=== PATIENT | female | born 1930 | race Caucasian/White ===

== ENCOUNTER 2017-01-11 03:46 | Emergency (ER) | payer MEDICARE, OTHER ==
[2017-01-11 04:05] LABS: BASO % 0.4 % (0.1-1.2); EOS # 0.1 10_X3_uL (0.0-0.4); EOS % 1.4 % (0.7-5.8); GRAN # 6.2 10_X3_uL (1.6-6.1); GRAN % 65.1 % (34.0-71.1); HEMATOCRIT 43.8 % (34-45); HEMOGLOBIN 14.3 g/dL (11.2-15.7); LYMPH # 2.3 10_X3_uL (1.2-3.7); LYMPH % 24.4 % (19.3-51.7); MEAN CORPUSCULAR HEMOGLOBIN 30.2 pg (27.0-33.0); MEAN CORPUSCULAR HGB CONC 32.6 g/dL (32.0-36.0); MEAN CORPUSCULAR VOLUME 92.4 fL (79-95); MONO # 0.8 10_X3_uL (0.2-0.9); MONO % 8.7 % (4.7-12.5); PLATELET COUNT 209 x10_3/uL (182-369); RED BLOOD COUNT 4.74 x10_6/uL (3.9-5.2); RED CELL DISTRIBUTION WIDTH 14.4 % (11.7-14.4); WHITE BLOOD COUNT 9.5 x10_3/uL (4.0-10.0)
[2017-01-11 04:21] LABS: ALBUMIN 4.1 gm/dL (3.4-5.0); ALKALINE PHOSPHATASE 76 U/L (50-136); ALT/SGPT 19 U/L (3.5-33.9); AMYLASE 79 U/L (15.62-74.58); AST/SGOT 21 U/L (7.04-26.96); BILIRUBIN,TOTAL 0.31 mg/dL (0.0-1.0); BLOOD UREA NITROGEN 23 mg/dL (7-18); CALCIUM 9.5 mg/dL (8.7-10.7); CARBON DIOXIDE 24 mmol/L (21-32); CREATINE KINASE 46 U/L (21-215); CREATININE 0.8 mg/dL (0.6-1.3); GLUCOSE,RANDOM 140 mg/dL (70-99); LIPASE 77 U/L (6.75-60.75); POTASSIUM 3.7 mmol/L (3.5-5.1); SODIUM 140 mmol/L (136-145); TOTAL PROTEIN 7.1 gm/dL (6.4-8.2)
[2017-01-11 05:05] LABS: URINE BILIRUBIN NEGATIVE (NEGATIVE); URINE BLOOD NEGATIVE (NEGATIVE); URINE GLUCOSE (UA) NORMAL (NORMAL); URINE KETONE NEGATIVE (NEGATIVE); URINE LEUKOCYTE ESTERASE TRACE (NEGATIVE); URINE NITRATE NEGATIVE (NEGATIVE); URINE PROTEIN TRACE (NEGATIVE); URINE RBC 0-5 /[HPF] (0-2); URINE WBC 0-5 /[HPF] (0-5); UROBILINOGEN NORMAL mg/dL (<1.0)
== END 2017-01-11 06:07 | disposition home or self-care (01) ==
LOC: ER 03:46
PROVIDERS: Emergency Medicine
DX: R11.2 Nausea with vomiting, unspecified (principal); I10 Essential (primary) hypertension; E03.9 Hypothyroidism, unspecified; Z88.0 Allergy status to penicillin
CPT/HCPCS: 36415; 80053; 81001; 82150; 82550; 82553; 83690; 85025; 93005; 96374; 96376; 99070; 99284; 99284-25; J7050; J8597

== ENCOUNTER 2017-02-11 13:30 | Emergency (ER) | payer MEDICARE, OTHER ==
[2017-02-11 13:53] LABS: BASO # 0.1 10_X3_uL (0.0-0.1); BASO % 0.8 % (0.1-1.2); EOS # 0.1 10_X3_uL (0.0-0.4); EOS % 1.3 % (0.7-5.8); GRAN % 65.8 % (34.0-71.1); HEMATOCRIT 43.7 % (34-45); HEMOGLOBIN 14.1 g/dL (11.2-15.7); LYMPH # 1.4 10_X3_uL (1.2-3.7); LYMPH % 22.6 % (19.3-51.7); MEAN CORPUSCULAR HEMOGLOBIN 30.6 pg (27.0-33.0); MEAN CORPUSCULAR HGB CONC 32.3 g/dL (32.0-36.0); MEAN CORPUSCULAR VOLUME 94.8 fL (79-95); MEAN PLATELET VOLUME 10.8 fl (7.5-11.5); MONO # 0.6 10_X3_uL (0.2-0.9); MONO % 9.5 % (4.7-12.5); PLATELET COUNT 235 x10_3/uL (182-369); RED BLOOD COUNT 4.61 x10_6/uL (3.9-5.2); RED CELL DISTRIBUTION WIDTH 14.8 % (11.7-14.4); WHITE BLOOD COUNT 6.1 x10_3/uL (4.0-10.0)
[2017-02-11 14:06] LABS: CALCIUM 9.5 mg/dL (8.7-10.7); POTASSIUM 3.6 mmol/L (3.5-5.1)
[2017-02-11 14:42] LABS: URINE BILIRUBIN NEGATIVE (NEGATIVE); URINE BLOOD TRACE (NEGATIVE); URINE GLUCOSE (UA) NORMAL (NORMAL); URINE KETONE NEGATIVE (NEGATIVE); URINE LEUKOCYTE ESTERASE 2+ (NEGATIVE); URINE NITRATE NEGATIVE (NEGATIVE); URINE PROTEIN TRACE (NEGATIVE)
[2017-02-11 14:54] LABS: URINE BACTERIA TRACE (NONE SEEN); URINE CALCIUM OXALATE CRYSTALS TNTC /[HPF] (NONE SEEN); URINE HYALINE CAST 0-2 /[HPF] (0-1/hpf); URINE MUCUS 1+; URINE RBC 0-5 /[HPF] (0-2); URINE SQUAMOUS EPITHELIAL CELL 0-10 /[HPF] (NONE SEEN); URINE WBC 0-5 /[HPF] (0-5)
== END 2017-02-11 15:22 | disposition home or self-care (01) ==
LOC: ER 13:30
PROVIDERS: General Practice
DX: R41.0 Disorientation, unspecified (principal); S90.31XA Contusion of right foot, initial encounter; F03.90 Unspecified dementia, unspecified severity, without behavioral disturbance, psychotic disturbance, mood disturbance, and anxiety; Z88.0 Allergy status to penicillin; Z79.899 Other long term (current) drug therapy
CPT/HCPCS: 36415; 73630; 80048; 81001; 85025; 99283; 99284

== ENCOUNTER 2017-02-12 22:06 | Inpatient (IN) | payer MEDICARE, OTHER ==
[~2017-02-12] VITALS: Ht 167.6 cm; Wt 54.0 kg
[2017-02-13 00:36] LABS: BASO % 0.2 % (0.1-1.2); EOS % 0.2 % (0.7-5.8); GRAN # 10.4 10_X3_uL (1.6-6.1); GRAN % 86.6 % (34.0-71.1); HEMATOCRIT 40.1 % (34-45); LYMPH # 0.8 10_X3_uL (1.2-3.7); LYMPH % 6.4 % (19.3-51.7); MEAN CORPUSCULAR HEMOGLOBIN 30.1 pg (27.0-33.0); MEAN CORPUSCULAR HGB CONC 32.4 g/dL (32.0-36.0); MEAN CORPUSCULAR VOLUME 92.8 fL (79-95); MEAN PLATELET VOLUME 10.8 fl (7.5-11.5); MONO # 0.8 10_X3_uL (0.2-0.9); MONO % 6.6 % (4.7-12.5); PLATELET COUNT 220 x10_3/uL (182-369); RED BLOOD COUNT 4.32 x10_6/uL (3.9-5.2); RED CELL DISTRIBUTION WIDTH 14.4 % (11.7-14.4)
[2017-02-13 00:53] LABS: ALBUMIN 3.8 gm/dL (3.4-5.0); ALKALINE PHOSPHATASE 75 U/L (50-136); ALT/SGPT 18 U/L (3.5-33.9); AST/SGOT 18 U/L (7.04-26.96); BILIRUBIN,TOTAL 0.47 mg/dL (0.0-1.0); BLOOD UREA NITROGEN 23 mg/dL (7-18); CALCIUM 9.2 mg/dL (8.7-10.7); CARBON DIOXIDE 28 mmol/L (21-32); CREATININE 0.7 mg/dL (0.6-1.3); GLUCOSE,RANDOM 136 mg/dL (70-99); POTASSIUM 3.7 mmol/L (3.5-5.1); SODIUM 140 mmol/L (136-145); TOTAL PROTEIN 6.7 gm/dL (6.4-8.2)
[2017-02-13 07:06] LABS: BASO % 0.2 % (0.1-1.2); EOS % 0.2 % (0.7-5.8); GRAN # 8.4 10_X3_uL (1.6-6.1); GRAN % 86.5 % (34.0-71.1); HEMATOCRIT 38.5 % (34-45); HEMOGLOBIN 12.4 g/dL (11.2-15.7); LYMPH # 0.8 10_X3_uL (1.2-3.7); LYMPH % 7.7 % (19.3-51.7); MEAN CORPUSCULAR HEMOGLOBIN 30.2 pg (27.0-33.0); MEAN CORPUSCULAR HGB CONC 32.2 g/dL (32.0-36.0); MEAN CORPUSCULAR VOLUME 93.7 fL (79-95); MEAN PLATELET VOLUME 11.6 fl (7.5-11.5); MONO # 0.5 10_X3_uL (0.2-0.9); MONO % 5.4 % (4.7-12.5); PLATELET COUNT 201 x10_3/uL (182-369); RED BLOOD COUNT 4.11 x10_6/uL (3.9-5.2); RED CELL DISTRIBUTION WIDTH 14.4 % (11.7-14.4); WHITE BLOOD COUNT 9.7 x10_3/uL (4.0-10.0)
[2017-02-13 07:13] LABS: BLOOD UREA NITROGEN 22 mg/dL (7-18); CALCIUM 8.9 mg/dL (8.7-10.7); CARBON DIOXIDE 30 mmol/L (21-32); CREATININE 0.7 mg/dL (0.6-1.3); GLUCOSE,RANDOM 118 mg/dL (70-99); POTASSIUM 4.3 mmol/L (3.5-5.1); SODIUM 138 mmol/L (136-145)
[2017-02-14 03:06] LABS: URINE BILIRUBIN NEGATIVE (NEGATIVE); URINE BLOOD TRACE (NEGATIVE); URINE GLUCOSE (UA) NORMAL (NORMAL); URINE KETONE NEGATIVE (NEGATIVE); URINE LEUKOCYTE ESTERASE TRACE (NEGATIVE); URINE NITRATE NEGATIVE (NEGATIVE); URINE PROTEIN NEGATIVE (NEGATIVE); URINE RBC 0-5 /[HPF] (0-2); URINE WBC 0-5 /[HPF] (0-5); UROBILINOGEN NORMAL mg/dL (<1.0)
[2017-02-14 07:12] LABS: HEMATOCRIT 34.5 % (34-45); HEMOGLOBIN 11.8 g/dL (11.2-15.7); MEAN CORPUSCULAR HEMOGLOBIN 30.6 pg (27.0-33.0); MEAN CORPUSCULAR HGB CONC 34.2 g/dL (32.0-36.0); MEAN CORPUSCULAR VOLUME 89.4 fL (79-95); RED BLOOD COUNT 3.86 x10_6/uL (3.9-5.2); RED CELL DISTRIBUTION WIDTH 14.5 % (11.7-14.4)
[2017-02-14 07:27] LABS: BLOOD UREA NITROGEN 17 mg/dL (7-18); CALCIUM 9.1 mg/dL (8.7-10.7); CARBON DIOXIDE 31 mmol/L (21-32); CREATININE 0.6 mg/dL (0.6-1.3); GLUCOSE,RANDOM 89 mg/dL (70-99); POTASSIUM 3.6 mmol/L (3.5-5.1); SODIUM 140 mmol/L (136-145)
[2017-02-16 08:36] LABS: BASO % 0.2 % (0.1-1.2); EOS # 0.1 10_X3_uL (0.0-0.4); EOS % 0.7 % (0.7-5.8); GRAN # 6.9 10_X3_uL (1.6-6.1); GRAN % 77.9 % (34.0-71.1); HEMATOCRIT 38.6 % (34-45); HEMOGLOBIN 12.9 g/dL (11.2-15.7); LYMPH # 1.1 10_X3_uL (1.2-3.7); LYMPH % 12.2 % (19.3-51.7); MEAN CORPUSCULAR HEMOGLOBIN 30.8 pg (27.0-33.0); MEAN CORPUSCULAR HGB CONC 33.4 g/dL (32.0-36.0); MEAN CORPUSCULAR VOLUME 92.1 fL (79-95); MEAN PLATELET VOLUME 10.7 fl (7.5-11.5); MONO # 0.8 10_X3_uL (0.2-0.9); PLATELET COUNT 223 x10_3/uL (182-369); RED BLOOD COUNT 4.19 x10_6/uL (3.9-5.2); RED CELL DISTRIBUTION WIDTH 13.9 % (11.7-14.4); WHITE BLOOD COUNT 8.9 x10_3/uL (4.0-10.0)
[2017-02-16 09:00] LABS: BLOOD UREA NITROGEN 18 mg/dL (7-18); CALCIUM 9.4 mg/dL (8.7-10.7); CARBON DIOXIDE 27 mmol/L (21-32); CREATININE 0.8 mg/dL (0.6-1.3); GLUCOSE,RANDOM 120 mg/dL (70-99); POTASSIUM 3.6 mmol/L (3.5-5.1); SODIUM 138 mmol/L (136-145)
[2017-02-17 06:51] LABS: HEMATOCRIT 38.4 % (34-45); HEMOGLOBIN 12.3 g/dL (11.2-15.7); MEAN CORPUSCULAR HEMOGLOBIN 29.8 pg (27.0-33.0); MEAN PLATELET VOLUME 10.9 fl (7.5-11.5); RED BLOOD COUNT 4.13 x10_6/uL (3.9-5.2); RED CELL DISTRIBUTION WIDTH 14.1 % (11.7-14.4); WHITE BLOOD COUNT 6.6 x10_3/uL (4.0-10.0)
[2017-02-17 07:07] LABS: CALCIUM 9.1 mg/dL (8.7-10.7); CARBON DIOXIDE 29 mmol/L (21-32); CREATININE 0.8 mg/dL (0.6-1.3); GLUCOSE,RANDOM 93 mg/dL (70-99); POTASSIUM 3.8 mmol/L (3.5-5.1); SODIUM 138 mmol/L (136-145)
[2017-02-17 07:09] LABS: BLOOD UREA NITROGEN 24 mg/dL (7-18)
== END 2017-02-18 15:50 | disposition home or self-care (01) | DRG 190 ==
LOC: ER 22:06 → MS 02-13 03:23
PROVIDERS: Emergency Medicine; Family Medicine; ADMIT Family Medicine
DX: J44.0 Chronic obstructive pulmonary disease with (acute) lower respiratory infection (principal); J18.0 Bronchopneumonia, unspecified organism; R91.8 Other nonspecific abnormal finding of lung field; K57.30 Diverticulosis of large intestine without perforation or abscess without bleeding; I10 Essential (primary) hypertension; E03.9 Hypothyroidism, unspecified; F03.90 Unspecified dementia, unspecified severity, without behavioral disturbance, psychotic disturbance, mood disturbance, and anxiety; R10.30 Lower abdominal pain, unspecified; R41.0 Disorientation, unspecified; R07.81 Pleurodynia; R45.1 Restlessness and agitation; W18.11XA Fall from or off toilet without subsequent striking against object, initial encounter; Y92.002 Bathroom of unspecified non-institutional (private) residence as the place of occurrence of the external cause; Z79.899 Other long term (current) drug therapy; Z88.0 Allergy status to penicillin; Z88.5 Allergy status to narcotic agent; Z88.8 Allergy status to other drugs, medicaments and biological substances
CPT/HCPCS: 36415; 70450; 71250; 72125; 80048; 80053; 81001; 83605; 84443; 85025; 86738; 87040; 87449; 94640; 94664; 96365; 99070; 99284; 99284-25

== ENCOUNTER 2017-02-12 22:06 | Emergency (ER) | payer MEDICARE, OTHER | END 2017-02-13 03:23 | disposition other institution (70) | LOC: ER 22:06 | DX: J18.9 Pneumonia, unspecified organism (principal); R91.8 Other nonspecific abnormal finding of lung field; S20.212A Contusion of left front wall of thorax, initial encounter; W18.11XA Fall from or off toilet without subsequent striking against object, initial encounter; Y92.002 Bathroom of unspecified non-institutional (private) residence as the place of occurrence of the external cause; F03.90 Unspecified dementia, unspecified severity, without behavioral disturbance, psychotic disturbance, mood disturbance, and anxiety; E03.9 Hypothyroidism, unspecified; I10 Essential (primary) hypertension; Z79.899 Other long term (current) drug therapy; Z88.0 Allergy status to penicillin; Z88.5 Allergy status to narcotic agent | CPT/HCPCS: 99284; 99284-25 ==